=== PATIENT | male | born 1940 | race Two or more races ===

== ENCOUNTER 2018-11-27 08:38 | Outpatient (CLI) | payer OTHER | END 2018-11-27 16:38 | disposition home or self-care (01) | LOC: LAB 08:38 | DX: K40.90 Unilateral inguinal hernia, without obstruction or gangrene, not specified as recurrent (principal); Z51.81 Encounter for therapeutic drug level monitoring ==

== ENCOUNTER 2018-11-30 08:46 | Outpatient (CLI) | payer OTHER | END 2018-11-30 08:59 | disposition home or self-care (01) | LOC: TOM 08:46 | DX: K40.20 Bilateral inguinal hernia, without obstruction or gangrene, not specified as recurrent (principal) ==